=== PATIENT | female | born 1965 | race Caucasian/White ===

== ENCOUNTER 2020-05-10 14:20 | Outpatient (CLI) | payer OTHER, SELFPAY ==
[2020-05-11 14:58] LABS: SARS-CoV-2 RNA PCR Negative
== END 2020-05-10 14:21 | disposition home or self-care (01) ==
PROVIDERS: PCP Internal Medicine; Visit Provider Internal Medicine
DX: J02.9 Acute pharyngitis, unspecified (principal)
CPT/HCPCS: 87081; 87635; 87880; C9803; U0003

== ENCOUNTER → 2021-07-21 15:19 | Outpatient (CLI) | payer OTHER, SELFPAY ==
--- NOTE | ~2021-07-21 | XR_ITS ---
XR shoulder LT min 2V DATE: 07/21/2021 15:31 INDICATION: Left shoulder pain TECHNIQUE: 4 views COMPARISON: None FINDINGS: No fracture or dislocation, periosteal reaction or bone destruction. Normal alignment at th e acromion clavicular and glenohumeral joints. No abnormal soft tissue calcification of the left shou lder. IMPRESSION: No significant abnormality Reviewed, dictated and finalized at location A. IMPRESSION: No significant abnormality
== END ==
PROVIDERS: PCP Internal Medicine; Visit Provider Internal Medicine
DX: M25.512 Pain in left shoulder (principal)
CPT/HCPCS: 73030

== ENCOUNTER 2021-10-14 08:32 | Emergency (ER) | payer OTHER, SELFPAY ==
--- NOTE | 2021-10-14 08:40 | ED.URI ---
HPI - URI/Sore Throat General Chief Complaint: Upper Respiratory Infection Stated Complaint: sore throat Time Seen by Provider: 10/14/21 08:45 Source: patient, family, RN notes reviewed and old records reviewed Mode of arrival: ambulatory Limitations: no limitations History of Present Illness HPI Narrative: 56-year-old female presents to the [facility] with a sore throat and laryngitis since Wednesday, 3 days. Patient denies any other symptoms. States that she felt feverish Wednesday. Has taken Motrin and Tyenol elicited complaint: sore throat, rhinorrhea, nasal congestion and sinus pain Onset (ago): day(s) (3) Consistency: constant Related Data Home Medications Medication Instructions Recorded Confirmed loratadine [Claritin] 10 mg PO DAILY 10/14/21 10/14/21 verapamil 40 mg PO DAILY 10/14/21 10/14/21 Allergies Allergy/AdvReac Type Severity Reaction Status Date / Time moxifloxacin [From Avelox] Allergy Anaphylaxis Verified 10/14/21 08:56 Review of Systems Review of Systems: All systems reviewed & are unremarkable except as noted in HPI and below Constitutional: Constitutional: Reports as per HPI, Reports chills, Denies fever(s) and Denies headache(s) Eyes: Eyes: Reports no additional eye complaints ENT: Reports as per HPI, Denies vertigo, Denies dizziness, Denies headache(s), Denies nasal congestion and Reports sore throat Cardiovascular: Cardiovascular: Reports no additional cardiovascular complaints, Denies chest pain, Denies syncope, Denies rapid heart rate and Denies dyspnea Respiratory: Respiratory: Reports no additional respiratory complaints, Denies cough, Denies dyspnea and Denies wheezing Gastrointestinal: Gastrointestinal: Reports no additional gastrointestinal complaints, Denies abdominal pain, Denies diarrhea, Denies nausea and Denies vomiting Musculoskeletal: Musculoskeletal: Reports no additional musculoskeletal complaints and Denies numbness Integumentary/Breasts: Skin/Breast: Reports system reviewed and no additional complaints, except as docu Neurologic: Reports system reviewed and no additional complaints, except as documented, Denies vertigo, Denies dizziness, Denies syncope, Denies headache(s), Denies focal weakness and Denies numbness Psychiatric: Psychiatric: Reports no additional psychiatric complaints Allergic/Immunologic: Allergic/Immunologic: Reports no additional allergic/immunologic complaints and Denies wheezing PMFSH Past Medical History Medical History Allergies H/O gastroesophageal reflux (GERD) Hypertension Social History Social History (Updated 10/14/21 @ 09:31 by Sherley Erazo) Living arrangements: with family Gender identity (if verbalized by the patient): Female Comments At the time of my signature, I reviewed and agree with the nursing past medical, surgical, social, and family history. There is no relevant family history pertinent to the patient complaint. Exam Const: General: cooperative, healthy appearing, no acute distress, well developed and alert Nutritional Appearance: well nourished Orientation/consciousness: patient oriented x3 Limitations: no limitations HENMT: Head: normal to inspection Ears: external ears normal, TM's normal bilaterally and EAC's normal General nose exam: Normal external nose present, Normal nasal mucous membranes and turbinates present and No nasal discharge present Face and sinus: normal facial exam and sinuses nontender Teeth and gingiva: dentition normal Throat: tonsils normal, uvula midline and postnasal drainage Eyes: Conjunctivae: conjunctivae normal Pupils: Equal, round and reactive pupils present Neck: Neck: normal visual inspection, no lymphadenopathy and no meningeal signs Chest: Chest palpation & inspection: normal inspection of the chest Resp: Effort & Inspection: normal respiratory effort and no use of accessory muscles Auscultation: clear to auscultation bilater
[2021-10-14 08:47] VITALS: BP 140/83; PULSE 84; RESP 16; TEMP 37.3; O2SAT 98
== END 2021-10-14 09:15 | disposition home or self-care (01) ==
PROVIDERS: Emergency Provider Nurse Practitioner; PCP Internal Medicine
DX: J02.9 Acute pharyngitis, unspecified (principal); K21.9 Gastro-esophageal reflux disease without esophagitis; I10 Essential (primary) hypertension
CPT/HCPCS: 87081; 87880; 99203; G0463

== ENCOUNTER 2025-02-22 16:23 | Outpatient (CLI) | payer OTHER, SELFPAY ==
--- NOTE | ~2025-02-22 | XR_ITS ---
Lumbosacral Spine: AP and lateral views Clinical History: Pain Findings: The normal lordotic curve is maintained. The vertebral bodies and posterior elements are i ntact. There is mild to moderate degenerative disc narrowing at L4-L5 and L5-S1. There is severe face t arthropathy from L3 through S1. The sacroiliac joints are normally outlined. Impression: Moderate to advanced degenerative spondylosis of the lower lumbar spine, as detailed above. Reviewed, dictated and finalized at location M. Impression: Moderate to advanced degenerative spondylosis of the lower lumbar spine, as det deb above.
== END 2025-02-22 16:24 | disposition home or self-care (01) ==
LOC: MICIMG 16:25
PROVIDERS: PCP Nurse Practitioner Family; Visit Provider Nurse Practitioner Family
DX: M47.816 Spondylosis without myelopathy or radiculopathy, lumbar region (principal)
CPT/HCPCS: 72100

== ENCOUNTER 2025-03-08 15:35 | Outpatient (CLI) | payer OTHER, SELFPAY ==
--- NOTE | ~2025-03-08 | MR_ITS ---
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 Sequences included sagittal T1-weighted FSE, sagittal fluid se nsitive FSE STIR, coronal PD-weighted FS FSE, coronal T1-weighted FSE, axial PD-weighted FS FSE, axia l PD-weighted FSE, axial T1-weighted FS FSE and postcontrast axial, sagittal and coronal T1-weighted FS FSE. COMPARISON: None FINDINGS: Bone alignment is normal. No fracture or pathologic marrow replacing process. Mild osteoarthritis at the first metatarsophalangeal and a few tarsometatarsal and interphalangeal joints. There is associat ed mild subarticular edema-like signal change at the second tarsal metatarsal joint. There cephalad b ulging mildly enhancing intermediate signal intensity soft tissue with teardrop configuration displac ing the fat between the heads of the second and third metatarsals and to lesser degree between the he ads of the third and fourth metatarsals consistent with perineural fibrosis (Valverde's neuroma). The L isfranc ligament complex as well as the collateral ligament complex at the metatarsophalangeal and in terphalangeal joints are normal. The flexor and extensor tendons are normal as is the intrinsic muscu lature of the foot. No joint effusions, tenosynovitis or other abnormal fluid collections. IMPRESSION: 1. Increased mildly enhancing soft tissue situated between the heads of the second and third metatars als and to lesser degree between the heads of the third and fourth metatarsals consistent with digita l nerve perineural fibrosis/(Valverde's neuroma). Reviewed, dictated and finalized at location B. IMPRESSION: 1. Increased mildly enhancing soft tissue situated between the heads of the sec ond and third metatarsals and to lesser degree between the heads of the third a nd fourth metatarsals consistent with digital nerve perineural fibrosis/(Valverde 's neuroma).
== END 2025-03-08 15:36 | disposition home or self-care (01) ==
LOC: MICIMG 15:37
PROVIDERS: PCP Nurse Practitioner Family; Visit Provider Podiatrist Foot & Ankle Surgery
DX: M77.42 Metatarsalgia, left foot (principal); G57.82 Other specified mononeuropathies of left lower limb
CPT/HCPCS: 73720; A9577

== ENCOUNTER 2025-03-15 15:37 | Outpatient (CLI) | payer OTHER, SELFPAY ==
--- NOTE | ~2025-03-15 | MR_ITS ---
MRI of the lumbar spine Clinical History: Paresthesia Technique: Axial T2-weighted images, and sagittal T1-weighted, T2-weighted, and T2 fat-sat images wer e acquired. Findings: There is no fracture of the lumbar spine. There is minimal grade 1 anterolisthesis of L4 ov er L5. No suspicious bone marrow signal abnormality seen. At L1-L2, there is minimal disc bulge with moderate facet arthropathy. No central canal stenosis. The re is minimal bilateral neural foraminal narrowing. At L2-L3, there is mild disc bulge with moderate to advanced facet arthropathy. No central canal sten osis. There is mild left neural foraminal narrowing. Right neural foramen preserved. At L3-L4, there is minimal disc bulge with moderate to advanced facet arthropathy. No central canal s tenosis. No definite neural foraminal narrowing. At L4-L5, there is mild degenerative disc narrowing with mild disc bulge and severe facet arthropathy . No central canal stenosis. Neural foramina are preserved. At L5-S1, there is mild degenerative disc narrowing. There is mild disc bulge with advanced facet art hropathy. No central canal stenosis. There is probable minimal left neural foraminal narrowing. Right neural foramen preserved. Paravertebral soft tissues are unremarkable. Impression: Mild degenerative spondylosis overall, as detailed above. Reviewed, dictated and finalized at [facility]. Impression: Mild degenerative spondylosis overall, as detailed above.
== END 2025-03-15 15:38 | disposition home or self-care (01) ==
LOC: MICIMG 15:38
PROVIDERS: PCP Nurse Practitioner Family; Visit Provider Nurse Practitioner Family
DX: R20.2 Paresthesia of skin (principal); R20.0 Anesthesia of skin; M51.362 Other intervertebral disc degeneration, lumbar region with discogenic back pain and lower extremity pain; M47.896 Other spondylosis, lumbar region
CPT/HCPCS: 72148